=== PATIENT | male | born 1985 | race Caucasian/White ===

== ENCOUNTER 2017-03-22 15:36 | Emergency (ER) | payer BC ==
[~2017-03-22] VITALS: Ht 188 cm; Wt 81.8 kg
[2017-03-22 15:43] VITALS: TEMP 36.9; Ht 188 cm; Wt 81.8 kg
[2017-03-22] MEDS ORDERED: XYLOCAINE 1%/SOD BICARB 20 ML VIAL INFIL ONE (16:00)
--- NOTE | 2017-03-22 16:24 | DIAGNOSTIC IMAGING REPORT ---
LEFT HAND MIN 3 VIEWS ROUTINE CLINICAL HISTORY: Left hand/3rd finger injury COMPARISON: None FINDINGS: Alignment of the left hand is anatomic. No fracture or radiopaque foreign body is identified. Carpal bones are intact. IMPRESSION: No acute fracture or dislocation of the left hand. No radiopaque foreign body. Electronically signed by: Ramez Phillips M.D. 03/22/2017 4:22 PM Dictated Date/Time: 03/22/2017 4:21 PM
[2017-03-22] MEDS ORDERED: CEPH500C PO (17:00)
[2017-03-22] MEDS ORDERED: CEPHALEXIN MONOHYDRATE 250 MG CAP PO ONE (17:00)
[2017-03-22 17:09] VITALS: BP 111/63; PULSE 79; O2SAT 99
--- NOTE | 2017-03-22 17:36 | EMERGENCY ROOM VISIT NOTE ---
History First contact with patient: 15:46 Chief Complaint: HAND PAIN/INJURY Stated Complaint: BLEEDING HAND History of Present Illness The patient is a 32 year old male who presents to the Emergency Room with complaints of left hand injury that occurred approximately 2 hours ago. The patient was placing an engine into a car at home. He does this as a hobby, and was using a patricia to lower the engine into the vehicle. He was using an additional total to manipulate the engine into proper position, when a piece struck into his left third finger and pinned his hand. The patient was able to remove hand after a few moments but had bleeding from the third finger. He went to urgent care clinic who cleansed and dressed the wound. His tetanus was updated, and the patient was referred to the ER due to the injury. The patient has full sensation and range of motion of the hand. No previous injuries. He rates his discomfort a 2/10. The bleeding is well-controlled. Review of Systems More than 10 systems were reviewed and otherwise negative with the exception of history of present illness. Past Medical/Surgical History No chronic medical disease Family History No pertinent family history Social History Smoking Status: Never Smoker Occupation Status: employed Current/Historical Medications Scheduled Cephalexin Monohydrate (Keflex), 500 MG PO TID Physical Exam Vital Signs Date Time Temp Pulse Resp B/P (MAP) Pulse Ox O2 Delivery O2 Flow Rate FiO2 03/22/17 17:09 79 16 111/63 99 Room Air 03/22/17 15:43 36.9 87 16 107/53 100 Room Air Pain Rating (0-10): 0 Physical Exam VITALS: Vitals are noted on the nurse's note and reviewed by myself. Vital signs stable. GENERAL: Well-developed, well-nourished, white male, who is in no acute distress and resting comfortably. Patient is cooperative with the examination. HEART: Regular rate and rhythm without murmurs gallops or rubs. LUNGS: Clear to auscultation bilaterally without wheezes, rales or rhonchi. No retractions or accessory muscle use. MUSCULOSKELETAL: The patient is with full sensation and range of motion of the left hand. He does have a U-shaped 3.5 cm laceration over the proximal phalanx of the left third digit on the palmar aspect. This does gape and will require repair. The patient is able to flex and extend against resistance with the left third digit. No other significant injuries noted. NEURO: Patient was alert and oriented to person place and time. CN II through XII grossly intact. SKIN: The skin of the hands were soiled with automotive grease Medical Decision & Procedures ER Provider Diagnostic Interpretation: LEFT HAND MIN 3 VIEWS ROUTINE CLINICAL HISTORY: Left hand/3rd finger injury COMPARISON: None FINDINGS: Alignment of the left hand is anatomic. No fracture or radiopaque foreign body is identified. Carpal bones are intact. IMPRESSION: No acute fracture or dislocation of the left hand. No radiopaque foreign body. Medications Administered Medications (Trade) Dose Ordered Sig/Monique Route Start Time Stop Time Status Last Admin Dose Admin Cephalexin Monohydrate (Keflex Cap) 500 mg NOW ONCE PO 03/22/17 17:00 03/22/17 17:01 DC 03/22/17 17:14 500 MG Procedure Laceration repair. Patient elects to have their laceration repaired. Verbal consent was obtained to perform the procedure. There is an abundance of materials available for the procedure. Patient is do not allergic to latex. Using sterile technique the wound was cleaned with Betadine. The area was sterilely draped. 4 ml of 1% buffered lidocaine was used to anesthetize the left third finger laceration in a local fashion. Once the patient was anesthetized, the wound was copiously irrigated under pressure with sterile saline. The wound was explored and there were no deep structures injured such as tendons, bone, or significant blood vessels. The laceration was repaired using 6 simple interrupted 5-0 nylon sutures with the wound edges being well approximated. Hemostasis was achieved. The area was cleaned with sterile saline and dressed with bacitracin ointment and bandage. Patient tolerated the procedure well without complications. Blood loss was negligible. ED Course Physical exam and history were performed. Nursing notes, EMR, and Medication List were personally reviewed. Patient appears to have suffered injury to his left hand with resultant laceration of the left third finger. X-ray was obtained and does not show evidence of fracture or foreign body. The patient wound was cleansed and irrigated. There does not appear to be tendon or ligamentous injury on exam. The wound was repaired as above and the patient tolerated this well. The patient's hands are quite dirty with automotive grease, and extensive amount of time was spent cleaning the wound. I will start him on a short course of Keflex and give him a metal splint. Wound care instructions were discussed and the patient was otherwise invited back to the ER with any new, worsening, or concerning symptoms. The chart was completed utilizing [employer] Speech Voice Recognition Software. Grammatical errors, random word insertions, pronoun errors, and incomplete sentences are an occasional consequence of this system due to software limitations, ambient noise, and hardware issues. Any formal questions or concerns about the content, text, or information contained within the body of this dictation should be directly addressed to the provider for clarification. . Medical Decision Differential diagnosis includes, but is not limited to: Laceration, abrasion, foreign body, sprain, strain, fracture, dislocation, subluxation, contusion, and others Impression Primary Impression: Laceration of finger of left hand Departure Information Dispostion Home / Self-Care Condition GOOD Prescriptions Cephalexin Monohydrate (Keflex) 500 Mg Cap 500 MG PO TID for 5 Days, #15 CAP Prov: Barry Nolasco PA-C 03/22/17 Forms HOME CARE DOCUMENTATION FORM, IMPORTANT VISIT INFORMATION Patient Instructions [facility], ED Laceration All, ED Scar Tips to Minimize Additional Instructions You were seen and evaluated today on an emergency basis only. This is not a substitute for, or an effort to provide, complete comprehensive medical care. It is not possible to recognize and treat all injuries or illnesses in a single emergency department visit. For this reason it is recommended that you followup with your primary care physician with any ongoing or persistent symptoms. Keep wound clean and dry. Do not allow any crusting or dried blood to accumulate on sutures. If this occurs, use a mild soap/water on a Q-tip to clean the wound. Do not use Peroxide to clean the wound as this can delay healing Use an antibiotic ointment like Bacitracin for 3-4 days, then let wound dry. You may bathe and shower as normal, but DO NOT SOAK the wound. Suture removal in about 8-10 days with your Family Doctor or in the ER. Return sooner for any signs of infection, increasing redness, swelling, or drainage. Cephalexin(Keflex) 500mg: Take one pill 3 times daily for 5 days to prevent skin infection. All antibiotics can cause diarrhea. If this occurs and you feel worse or it does not resolve in 1-2 days follow up with your doctor or return to the Emergency Department as this could be signs of serious underlying problems. Any medication can cause an allergic reaction, stop the pills immediately and return to the ER for rash, hives, breathing difficulties, or swelling. Wear your metal splint for the next few days to prevent movement of the finger. You are welcome to return to the emergency department anytime with new, worsening, or concerning symptoms. Problem Qualifiers Primary Impression: Laceration of finger of left hand Encounter type: initial encounter Finger: middle finger Damage to nail status: without damage Foreign body presence: without foreign body Qualified Codes: S61.213A - Laceration without foreign body of left middle finger without damage to nail, initial encounter
== END 2017-03-22 17:30 | disposition home or self-care (01) ==
LOC: C.EDB 15:40 → C.EDD 17:30
DX: S61.213A Laceration without foreign body of left middle finger without damage to nail, initial encounter (principal); W23.1XXA Caught, crushed, jammed, or pinched between stationary objects, initial encounter; Y92.009 Unspecified place in unspecified non-institutional (private) residence as the place of occurrence of the external cause; Y93.89 Activity, other specified